=== PATIENT | female | born 1975 ===

== ENCOUNTER 2019-08-05 12:16 | Emergency (ER) | payer SELFPAY ==
--- NOTE | 2019-08-05 12:47 | UC ---
Back Pain HPI - HPI Summary HPI Summary: Back pain started yesterday after waking up. She reports having chronic back pain and recently moved/lifting a lot and also had a long flight in from [facility]. Then sitting for a long time. Denies fall. Denies tingling/numbness. feels like a lower back painful band. [place] : paracetamol, opiate and caffeine combo which did not help. her partner is MD and used to give her steroid inj which helped a long time ago. used to take gabapentin which helped but she did not like side effects so does not want that. - History of Current Complaint Chief Complaint: UCBackPain Stated Complaint: BACK PAIN Time Seen by Provider: 08/05/19 12:19 Hx Obtained From: Patient Hx Last Menstrual Period: 07/28/19 Pain Intensity: 8 Pain Scale Used: 0-10 Numeric Character: Spasmodic, Stiffness Aggravating Factor(s): Lifting, Walking Alleviating Factor(s): Nothing Associated Signs And Symptoms: Negative: Numbness, Tingling - Allergies/Home Medications Allergies/Adverse Reactions: Allergies Allergy/AdvReac Type Severity Reaction Status Date / Time aspirin Allergy stomach Verified 08/05/19 12:42 upset PMH/Surg Hx/FS Hx/Imm Hx - Additional Past Medical History Additional PMH: chronic back pain Previously Healthy: Yes - Surgical History Surgical History: Yes Surgery Procedure, Year, and Place: c/sec x 3 - Family History Known Family History: Positive: Non-Contributory - Social History Alcohol Use: None Substance Use Type: None Smoking Status (MU): Never Smoked Tobacco Review of Systems All Other Systems Reviewed And Are Negative: Yes Constitutional: Negative: Fever Skin: Negative: Rash Respiratory: Negative: Shortness Of Breath Genitourinary: Negative: Dysuria Motor: Negative: Weakness Musculoskeletal: Positive: Arthralgia - back pain. Negative: Myalgia Neurological: Negative: Paresthesia, Numbness, Other - denies urinary incontinence Physical Exam Triage Information Reviewed: Yes Appearance: Well-Appearing Vital Signs: Initial Vital Signs Temp 98 F 08/05/19 12:38 Pulse 87 08/05/19 12:38 Resp 16 08/05/19 12:38 BP 153/95 08/05/19 12:38 Pulse Ox 100 08/05/19 12:38 Vital Signs Reviewed: Yes Respiratory Exam: Normal Cardiovascular Exam: Normal Musculoskeletal: Positive: Strength Intact, ROM Intact - but w/ pain, Other: - able to get on/off exam table but not w/out pain, she did begin to cry due to pain. Neurological: Positive: Alert Back Pain Course/Dx - Course Course Of Treatment: Acute exacerbation of a chronic issue after lifting and sitting too long. NO neuro deficits on exam but there appeared to be some spasming. and advised to f /u if this does develop. She does not want anything sleepy during the day so plan is to do rx strength during the day and night time flexeril. asa causes gi upset so we reviewed ibu and common side effects, she will take with food. BP reviewed and asked her to disc w/ pcp otherwise good vitals. - Differential Dx/Diagnosis Differential Diagnosis/HQI/PQRI: Strain, Sprain, Other Provider Diagnosis: Back strain Discharge ED - Sign-Out/Discharge Documenting (check all that apply): Patient Departure All imaging exams completed and their final reports reviewed: No Studies - Discharge Plan Condition: Good Disposition: HOME Prescriptions: Cyclobenzaprine (NF) [Cyclobenzaprine 5 MG (NF)] 5 mg PO BEDTIME PRN 15 Days # 15 tab PRN Reason: Spasms - Back Ibuprofen [Ibu] 600 mg PO TID 30 Days #90 tablet Patient Education Materials: Low Back Strain (ED) Referrals: No Primary Care Phys,NOPCP [Primary Care Provider] - Additional Instructions: Please follow up with your main doctor if worsening. - Billing Disposition and Condition Condition: GOOD Disposition: Home
== END 2019-08-05 13:04 | disposition home or self-care (01) ==
LOC: UCEAST 12:16
DX: S39.012A Strain of muscle, fascia and tendon of lower back, initial encounter (principal); X58.XXXA Exposure to other specified factors, initial encounter; Y92.9 Unspecified place or not applicable
CPT/HCPCS: 99202; G0463